=== PATIENT | male | born 1955 | race Caucasian/White ===

== ENCOUNTER 2018-10-22 21:20 | Inpatient (IN) | payer OTHER, MEDICAID ==
--- NOTE | 2018-10-22 21:58 | ED Physician Chart ---
ED Chief Complaint/HPI - Patient Information Date Seen:: 10/22/18 Time Seen:: 21:48 Chief Complaint:: G tube malfunction. right shoulder and right hip pain History of Present Illness:: 63 yo male with history of tremor and bipolar disorder and was admitted for manic episode to a [facility] hospital where he developed pneumonia and was placed with trach and PEG 4 months ago. Pt has been eating without issue for 3 months and pt has gained weight 30 lbs over 3 months. G tube feed was stopped 2 months ago. Pt noticed leakage and blockage of G tube today. About 2 months ago, pt had a fall resulting right shoulder and right hip pain. Currently, pt has painful ROM of the right shoulder. Pt was brought from SNF to ER for evaluation. Allergies:: Allergies Allergy/AdvReac Type Severity Reaction Status Date / Time No Known Allergies Allergy Verified 10/22/18 21:28 Vitals:: Vital Signs - 8 hr 10/22/18 21:20 Temp 98.8 F HR 91 RR 18 BP 129/90 O2 Sat % 97 ED Review of Systems - Review of Systems General/Constitutional: No fever, No chills Skin: No rash Head: No headache Eyes: No pain ENT: No earache Neck: Neck pain Cardio Vascular: Chest pain Pulmonary: No SOB GI: No nausea, No vomiting Musculoskeletal: No bone or joint pain Psychiatric: Depression, Anxiety Neurological: No focal symptoms ED Past Medical History - Past Medical History Past Medical History: HTN, Other (tremor, Klinefelters syndrome, left lazy eye) Social History: Non Smoker, No Alcohol, Illicit Drug Use (marijuana) Surgical History: PEG/GTube, other (Left inguinal hernia repair, tracheostomy ) Psychiatricy History: Bipolar Family Medical History - Family Member Mother History Unknown: Yes ED Physical Exam - Physical Examination General/Constitutional: Awake, Alert Other Gen/Cons comments:: Mild tremor of head and BUE Head: Atraumatic Eyes: PERRL, EOMI Skin: No skin lesions ENMT: Nasal exam nl Neck: No nuchal rigidity Respiratory: Clear to Auscultation, No Wheeze/Rhonchi/Rales Cardio Vascular: RRR, No murmur, gallop, rubs, NL S1 S2 GI: No tenderness/rebounding/guarding Other GI comments:: PEG in place, minor leakage from the tube Extremities: normal strength in all extremities Neuro/Psych: Normal motor strength, No focal deficits ED Labs/Radiology/EKG Results - Radiology Results Results: Right shoulder X ray: no acute fracture or dislocation Pelvis X ray: no acute fracture or dislocation ED Assessment - Assessment General Assessment: G tube malfunction Right shoulder pain Right hip pain Bipolar disorder Tremor Assessment/Comments:: Right shoulder X ray Pelvis X ray Admit to med surg for removal of PEG ED Septic Shock - . Is Septic Shock (SBP<90, OR Lactate>4 mmol\L) present?: No - <6hrs of presentation: Vital Signs: Vital Signs - 8 hr 10/22/18 21:20 Temp 98.8 F HR 91 RR 18 BP 129/90 O2 Sat % 97 ED Reassessment (Disposition) - Reassessment Reassessment Condition:: Unchanged - Patient Disposition Discharge/Transfer:: Acute Care w/in this hosp Admitting Medical Physician:: Tracy Jones
[2018-10-23] MEDS: D5-0.45NS 1,000 ML IV SCH (01:15)
[2018-10-23 01:25] VITALS: BP 122/76
[2018-10-23 05:36] LABS: ALB/GLOB RATIO 0.9 (1.0-1.8); ALBUMIN 3.4 gm/dL (4.2-5.5); ALKALINE PHOSPHATASE 66 U/L (34-104); BILIRUBIN,TOTAL 0.3 mg/dL (0.3-1.0); BUN - UREA NITROGEN 33 mg/dL (7-25); CALCIUM SERUM 9.6 mg/dL (8.6-10.3); CARBON DIOXIDE 28.1 mEq/L (21.0-31.0); CHLORIDE 104 mEq/L (98-107); CREATININE - SERUM 1.4 mg/dL (0.7-1.3); GFR AFRICAN-AMERICAN > 60.0 ml/min (>90); GFR NON AFRICAN-AMERICAN 54.1 ml/min; GLUCOSE 98 mg/dL (70-105); POTASSIUM SERUM 4.1 mEq/L (3.5-5.1); SGOT 12 U/L (13-39); SGPT/ALT 10 U/L (7-52); SODIUM SERUM 138 mEq/L (136-145); TOTAL PROTEIN,SERUM 7.3 gm/dL (6.0-8.3)
--- NOTE | 2018-10-23 09:20 | Diagnostic Imaging Report ---
Right hip (2 views) HISTORY: Pain Joint space appears normal. The femoral head exhibits a normal contour. No focal lesions. No fractures. IMPRESSION: No acute abnormalities
--- NOTE | 2018-10-23 09:25 | Diagnostic Imaging Report ---
Exam: Pelvis x-ray HISTORY: Pain Prior exam: None Findings: Frontal examination of the pelvis was reviewed. The study demonstrates no evidence of fracture or dislocation. The sacroiliac joints pubic symphysis and hip joints are intact. IMPRESSION: Unremarkable examination of the pelvis.
--- NOTE | 2018-10-23 09:25 | Diagnostic Imaging Report ---
EXAM: Right shoulder joint HISTORY: Pain COMPARISON: None FINDINGS: Multiple views of right shoulder joint reviewed. The study demonstrates no evidence of fracture or dislocation. There is no evidence of subluxation. The acromion clinically joint is intact. The head of right humerus is well within the glenoid fossa. IMPRESSION: Normal examination of the right shoulder joint.
--- NOTE | 2018-10-23 13:27 | History and Physical ---
History of Present Illness - HPI Chief Complaint: 63 y/o male patient was brought into ER due to G-tube leakage and blockage, [place] complaining of right shoulder and right hip pain. HPI: 63 y/o male patient was admitted to [facility] due to G-tube leakage and blockage. Patient also states he had a fall x 2 months ago and complains of right shoulder and right hip pain. Patient has history of Tremor, Bipolar disorder, Trach status and is G-tube dependent. Patient had an ER assessment and a complete workup was done. Patient had an x-ray done of the right shoulder and pelvis which both showed no fracture. Patient was diagnosed with G-tube malfunction, Right shoulder pain, Right hip pain, Bipolar disorder and Tremor. Patient will have a GI consult, Psych consult and I will follow patient. Patient will be treated and monitored. Patient will continue current treatment plan as ordered. Vital Signs: Last Vital Signs Temp 97.0 F 10/23/18 12:00 Pulse 75 10/23/18 12:00 Resp 18 10/23/18 12:00 BP 134/76 10/23/18 12:00 Pulse Ox 95 10/23/18 12:00 Past Medical History Cardiovascular: Report: No Pertinent Hx Pulmonary: Report: No Pertinent Hx PHARMACIST TECHNICIAN: Report: No Pertinent Hx GI: Report: Other (G-tube malfunction.) Psych: Report: Bipolar Musculoskeletal: Report: Other (Right shoulder pain and Right hip pain.) Rheumatologic: Report: No pertinent Hx Infectious Disease: Report: No Pertinent Hx Renal/: Report: No Pertinent Hx Endocrine: Report: No Pertinent Hx Dermatology: Report: No Pertinent Hx - Past Surgical History Past Surgical History: Other (G-tube status.) Family Medical History - Family Member Mother History Unknown: Yes Hx Family Cancer: No (unknown) Hx Family Coronary Artery Disease: No (unknown) Hx Family Congestive Heart Failure: No (unknown) Hx Family Hypertension: No (unknown) Hx Family Stroke: No (unknown) Hx Family Diabetes: No (unknown) Hx Family Seizures: No (unknown) Hx Family Dementia: No (unknown) Hx Family AIDS: No (unknown) Hx Family HIV: No Social History Smoke: No Alcohol: None Drugs: None Lives: [facility] Domestic Violence: Negative Health Maintenance Health Maintenance: Other (see chart.) - Medications Home Medications: Home Medication Medication Instructions Recorded Type Albuterol/Ipratropium Neb [Duoneb 3 ml HHN Q6HR PRN 10/22/18 History Neb] Carvedilol 3.125 mg PO BID 10/22/18 History Diphenhydramine HCL [Benadryl] 25 mg PO Q8HR PRN 10/22/18 History Docusate Sodium [Colace] 100 mg PO BID 10/22/18 History Escitalopram Oxalate [Lexapro] 20 mg PO DAILY 10/22/18 History Hydrocodone/APAP 5mg/325mg [[place] 1 tab PO Q6H PRN 10/22/18 History 5mg/325mg] Levothyroxine [Synthroid] 0.05 mg PO QDAC 10/22/18 History Lorazepam [Ativan] 0.5 mg PO Q6HR PRN 10/22/18 History OLANZapine [ZyPREXA] 10 mg PO TID 10/22/18 History Temazepam [Restoril*] 15 mg PO HS 10/22/18 History cloNIDine HCl [Catapres] 0.1 mg PO Q6HR PRN 10/22/18 History Other Medications: Please see medication reconciliation sheet. - Allergies Allergies/Adverse Reactions: Allergies Allergy/AdvReac Type Severity Reaction Status Date / Time No Known Allergies Allergy Verified 10/22/18 21:28 Review of Systems - Review of Systems Review of Systems: Patient c/o right shoulder and right hip pain since fall he had 2 months ago. Constitutional: Report: No Significant Eyes: Report: No Significant ENT: Report: No Significant Respiratory: Report: No Significant Cardiovascular: Report: No Significant Gastrointestinal: Report: No Significant Genitourinary: Report: No Significant Musculoskeletal: Report: Other (Right shoulder and Right hhip pain.) Skin: Report: No Significant Neurological: Report: No Significant Physical Exam - Physical Exam HEENT: Report: Ears Nose Throat within normal limits Neck: Report: Within normal limits Cardiovascular Systems: Report: +s1/s2 noted Respiratory: Report: Breath Sounds are within normal limits Abdomen: Report: Other (G-tube leakage and blockage.) Back: Report: Inspection of back is within normal limits. Extremities: Report: Other (Pain of right shoulder and pain of right hip.) Skin: Report: Color of skin is within normal limits Neuro/Psych: Report: Mood affect is within normal limits - Lab Results All Lab Results last 24 hours: Laboratory Results - last 24 hr 06/26/19 04:45 Sodium 138 Potassium 4.1 Chloride 104 Carbon Dioxide 28.1 Anion Gap 10.0 BUN 33 H Creatinine 1.4 H Est GFR ( Amer) > 60.0 Est GFR (Non-Af Amer) 54.1 BUN/Creatinine Ratio 23.6 Glucose 98 Calcium 9.6 Total Bilirubin 0.3 AST 12 L ALT 10 Alkaline Phosphatase 66 Total Protein 7.3 Albumin 3.4 L Globulin 3.9 Albumin/Globulin Ratio 0.9 L - Assessment Assessment: G-tube malfunction. Right shoulder pain. Right hip pain. Bipolar disorder. Tremor. - Plan Plan: Continuation of care. GI consult and Psych consult. Monitor Labs. Continue present meds as directed. Monitor Diet/Nutritional support/G-tube feedings Psych management per Psych. Pain Management. Physical therapy. Occupational therapy. Fall precaution, frequent nursing rounds, and as needed restraints to prevent fall. Safety precaution. Supportive care. Continue collaborating with consulting specialists, case management and nursing team. Will Monitor patient and continue current treatment plan as ordered.
--- NOTE | 2018-10-23 15:10 | Consultation ---
DATE OF CONSULTATION: 10/23/2018 REQUESTING PHYSICIAN: Dr. Jones. REASON FOR CONSULTATION: G-tube malfunction. HISTORY OF PRESENT ILLNESS: Thank you for asking me to see this patient in consultation. This is a 63-year-old gentleman who recently underwent a long hospitalization at which point, he was having oropharyngeal dysphagia and had a G-tube placement. The patient since this time has improved clinically and he is currently swallowing food without any difficulty or any issues. He currently does not require his G-tube and has not been using it and was requested that this be removed. At the time of my visit today, the patient has had a full meal and his medications currently are unknown. PAST MEDICAL HISTORY: No significant medical history. FAMILY HISTORY: Noncontributory for GI disease. SOCIAL HISTORY: No tobacco, alcohol or drugs. REVIEW OF SYSTEMS: As in HPI. All other 12-point systems are negative. PHYSICAL EXAMINATION: VITAL SIGNS: Temperature of 97, pulse 75, respirations 18, blood pressure 134/76, satting 95% on room air. GENERAL: No acute distress. HEENT: Normocephalic, atraumatic. PERRLA positive. LUNGS: Clear bilaterally. No wheezes, rales or rhonchi. HEART: Regular rate and rhythm, normal S1, S2. ABDOMEN: Soft, nontender, intact G-tube seen. EXTREMITIES: Show no lower extremity edema. PSYCHIATRIC: Alert and oriented x 3. NEUROLOGIC: Grossly intact. LABORATORY DATA: Sodium 138, potassium 4.1, chloride 104, BUN 33, creatinine 1.4, total bilirubin 0.3, AST of 12, ALT of 10. ASSESSMENT: This is a 63-year-old gentleman who presents with recent history of prolonged hospitalization, at that time required G-tube placement and then trach, who is currently improved clinically and no longer requiring G-tube. 1. Previous history of dysphagia. 2. Protein-calorie malnutrition. 3. Acute kidney injury. RECOMMENDATIONS: Would recommend continuing supportive care and management for this patient. I would recommend to remove G-tube after the patient has been n.p.o. after midnight to prevent any leakage of contents, which may further reduce the chances of successful stomal closure. Discussed this with the patient at the bedside, keep the patient n.p.o. after midnight and we will come in the morning to remove G-tube. Thank you for allowing me to participate in this patient's care. JOB# [id number]
[2018-10-23] MEDS ORDERED: Hydrocodone/APAP 5mg/325mg Tab PO PRN (15:40)
[2018-10-23] MEDS ORDERED: Albuterol/Ipratropium Neb 3 ML AERS HHN PRN (15:40)
[2018-10-24] MEDS: Levothyroxine 0.05 Mg Tab PO SCH (08:02)
[2018-10-24] MEDS: D5-0.45NS 1,000 ML IV SCH (09:34)
--- NOTE | 2018-10-24 09:45 | Consultation ---
DATE OF CONSULTATION: 10/24/2018 PSYCHIATRIC CONSULT PATIENT'S AGE: 63. SEX: Male. PHYSICIAN: Dr. Jones. ALMOND BLANCHER HAND: Dr. Luke. TYPE OF THE REPORT: Psychiatric consult. REASON FOR THE CONSULT: Adjusting psychotropic medications. HISTORY OF PRESENT ILLNESS: The patient with history of bipolar disorder. The patient was admitted to the hospital and Dr. Jones asked me to evaluate his condition and his psychotropic medications. The patient has been taking Zyprexa. The patient said that he has been stable in his psychotropic medications and Zyprexa has been helping his mood. He also has been slightly depressed, but not suicidal. He denies any auditory or visual hallucinations at this time. The patient also said that he tried different psychotropic medications, but nothing was helping him except Zyprexa. He said that he gained to start weight, but no major problems other than the weight gain. PAST PSYCHIATRIC HISTORY: The patient has history of treatment for depression and for bipolar disorder. PAST MEDICAL HISTORY: The patient said that he has Klinefelter syndrome. Otherwise, no other major medical issues. SOCIAL HISTORY: The patient is single, never and has no children. He lives in ____ for the last 3 months. He denies any alcohol or street drug use or smoking cigarettes. MENTAL STATUS EXAM: The patient appears his stated age. Calm. Cooperative. Fair eye contact. Normal tone and rate of speech. Thought processes are mainly goal directed. The patient denies any auditory or visual hallucinations or delusions. The patient denies any thoughts of suicide or homicide. The patient is alert and oriented to time, place, person, and situation. Intact immediate, recent and remote memories. Fair insight. Fair judgment. He seems to be of average intelligence based on his verbal ability. ASSESSMENT: PRIMARY DIAGNOSIS: Bipolar disorder, depressed episode, moderate without psychotic features. TREATMENT PLAN: Continue Zyprexa same dose. We will reevaluate and monitor his condition for any further recommendations. Thanks to Dr. Jones and we will followup with you. [facility]# [id number]
--- NOTE | 2018-10-24 13:15 | GI Progress Note ---
Subjective - Review of Systems Service Date: 10/24/18 Events since last encounter: No new events; pulled PEG tube GI OBJECTIVE - Results Result Diagrams: 10/23/18 04:45 Recent Labs: Laboratory Last Values Sodium 138 mEq/L (136-145) 10/23/18 04:45 Potassium 4.1 mEq/L (3.5-5.1) 10/23/18 04:45 Chloride 104 mEq/L (98-107) 10/23/18 04:45 Carbon Dioxide 28.1 mEq/L (21.0-31.0) 10/23/18 04:45 Anion Gap 10.0 (7.0-16.0) 10/23/18 04:45 BUN 33 mg/dL (7-25) H 10/23/18 04:45 Creatinine 1.4 mg/dL (0.7-1.3) H 10/23/18 04:45 Est GFR ( Amer) > 60.0 ml/min (>90) 10/23/18 04:45 Est GFR (Non-Af Amer) 54.1 ml/min 10/23/18 04:45 BUN/Creatinine Ratio 23.6 10/23/18 04:45 Glucose 98 mg/dL (70-105) 10/23/18 04:45 Calcium 9.6 mg/dL (8.6-10.3) 10/23/18 04:45 Total Bilirubin 0.3 mg/dL (0.3-1.0) 10/23/18 04:45 AST 12 U/L (13-39) L 10/23/18 04:45 ALT 10 U/L (7-52) 10/23/18 04:45 Alkaline Phosphatase 66 U/L (34-104) 10/23/18 04:45 Total Protein 7.3 gm/dL (6.0-8.3) 10/23/18 04:45 Albumin 3.4 gm/dL (4.2-5.5) L 10/23/18 04:45 Globulin 3.9 gm/dL 10/23/18 04:45 Albumin/Globulin Ratio 0.9 (1.0-1.8) L 10/23/18 04:45 - Physical Exam Vitals and I&O: Vital Signs Temp 97.5 F 10/24/18 11:42 Pulse 83 10/24/18 11:42 Resp 19 10/24/18 11:42 BP 116/74 10/24/18 11:42 Pulse Ox 98 10/24/18 11:42 Intake & Output 10/23/18 10/24/18 10/24/18 18:59 06:59 18:59 Intake Total 200 250 Output Total 400 400 Balance -200 -150 Weight (lbs) 68.946 kg 68.946 kg Intake: Oral 200 250 Output: Urine 400 400 Other: # Bowel Movements 0 Weight Source Bedscale Bedscale Active Medications: Current Medications Acetaminophen/Hydrocodone Bitart ([place] 5mg/325mg) 1 tab PO Q6H PRN PRN Reason: Pain (Moderate) Stop: 12/22/18 15:39 Albuterol/Ipratropium (Duoneb Neb) 3 ml HHN Q6HR PRN PRN Reason: Shortness of Breath Stop: 12/22/18 15:39 Carvedilol (Coreg) 3.125 mg PO BID [facility] Stop: 12/22/18 16:59 Last Admin: 10/24/18 08:02 Dose: Not Given Diphenhydramine HCl (Benadryl) 25 mg PO Q8HR PRN PRN Reason: Allergy Symptoms Stop: 12/22/18 15:39 Docusate Sodium (Colace) 100 mg PO BID [facility] Stop: 12/22/18 16:59 Last Admin: 10/24/18 08:02 Dose: Not Given Dextrose/Sodium Chloride (D5-0.45ns) 1,000 mls @ 50 mls/hr IV .Q20H [facility] Stop: 12/22/18 00:59 Last Admin: 10/24/18 09:34 Dose: 50 mls/hr Levothyroxine Sodium (Synthroid) 0.05 mg PO QDAC [facility] Stop: 12/23/18 07:29 Last Admin: 10/24/18 08:02 Dose: Not Given Lorazepam (Ativan) 1 mg PO Q6HR PRN; Protocol PRN Reason: Anxiety Stop: 12/22/18 12:46 Mupirocin (Bactroban Oint) 1 appl NS BID [facility] Stop: 10/29/18 09:01 Olanzapine (Zyprexa Zydis) 15 mg PO HS [facility]; Protocol Stop: 12/23/18 20:59 Temazepam (Restoril) 15 mg PO HS [facility]; Protocol Stop: 12/22/18 20:59 Last Admin: 10/23/18 20:35 Dose: 15 mg General: Alert, Oriented x3, Cooperative HEENT: Atraumatic, PERRLA, EOMI Neck: Supple Cardiovascular: Regular rate, Normal S1, Normal S2 Abdomen: Bowel sounds Assessment/Plan - Assessment Assessment: 1. Dysphagia - improved now 2. S/p PEG tube - pulled bedside -Traction method performed and G tube was removed: there is a mild amount of bloody discharge noted -Dress with dry dressing; will check healing tomorrow, then likely can be d/c but watch for any infection or bleeding -CLD for lunch, then regular food for dinner
--- NOTE | 2018-10-24 17:39 | Internal Medicine Prog Note ---
Internal Medicine Subjective - Subjective Service Date: 10/24/18 Patient seen and examined:: with staff Patient is:: awake Per staff patient has:: tolerating meds Internal Medicine Objective - Results Result Diagrams: 10/23/18 04:45 Recent Labs: Laboratory Last Values Sodium 138 mEq/L (136-145) 10/23/18 04:45 Potassium 4.1 mEq/L (3.5-5.1) 10/23/18 04:45 Chloride 104 mEq/L (98-107) 10/23/18 04:45 Carbon Dioxide 28.1 mEq/L (21.0-31.0) 10/23/18 04:45 Anion Gap 10.0 (7.0-16.0) 10/23/18 04:45 BUN 33 mg/dL (7-25) H 10/23/18 04:45 Creatinine 1.4 mg/dL (0.7-1.3) H 10/23/18 04:45 Est GFR ( Amer) > 60.0 ml/min (>90) 10/23/18 04:45 Est GFR (Non-Af Amer) 54.1 ml/min 10/23/18 04:45 BUN/Creatinine Ratio 23.6 10/23/18 04:45 Glucose 98 mg/dL (70-105) 10/23/18 04:45 Calcium 9.6 mg/dL (8.6-10.3) 10/23/18 04:45 Total Bilirubin 0.3 mg/dL (0.3-1.0) 10/23/18 04:45 AST 12 U/L (13-39) L 10/23/18 04:45 ALT 10 U/L (7-52) 10/23/18 04:45 Alkaline Phosphatase 66 U/L (34-104) 10/23/18 04:45 Total Protein 7.3 gm/dL (6.0-8.3) 10/23/18 04:45 Albumin 3.4 gm/dL (4.2-5.5) L 10/23/18 04:45 Globulin 3.9 gm/dL 10/23/18 04:45 Albumin/Globulin Ratio 0.9 (1.0-1.8) L 10/23/18 04:45 - Physical Exam Vitals and I&O: Vital Signs Temp 97.4 F 10/24/18 16:00 Pulse 87 10/24/18 16:00 Resp 18 10/24/18 16:00 BP 108/72 10/24/18 16:00 Pulse Ox 95 10/24/18 16:00 Intake & Output 10/23/18 10/24/18 10/24/18 18:59 06:59 18:59 Intake Total 200 250 400 Output Total 400 400 Balance -200 -150 400 Weight (lbs) 152 lb 152 lb 153 lb Intake: Oral 200 250 400 Output: Urine 400 400 Other: # Voids 2 # Bowel Movements 0 0 Weight Source Bedscale Bedscale Bedscale Active Medications: Current Medications Acetaminophen/Hydrocodone Bitart ([place] 5mg/325mg) 1 tab PO Q6H PRN PRN Reason: Pain (Moderate) Stop: 12/22/18 15:39 Albuterol/Ipratropium (Duoneb Neb) 3 ml HHN Q6HR PRN PRN Reason: Shortness of Breath Stop: 12/22/18 15:39 Carvedilol (Coreg) 3.125 mg PO BID [facility] Stop: 12/22/18 16:59 Last Admin: 10/24/18 15:59 Dose: Not Given Diphenhydramine HCl (Benadryl) 25 mg PO Q8HR PRN PRN Reason: Allergy Symptoms Stop: 12/22/18 15:39 Docusate Sodium (Colace) 100 mg PO BID [facility] Stop: 12/22/18 16:59 Last Admin: 10/24/18 15:59 Dose: Not Given Dextrose/Sodium Chloride (D5-0.45ns) 1,000 mls @ 50 mls/hr IV .Q20H [facility] Stop: 12/22/18 00:59 Last Admin: 10/24/18 09:34 Dose: 50 mls/hr Levothyroxine Sodium (Synthroid) 0.05 mg PO QDAC [facility] Stop: 12/23/18 07:29 Last Admin: 10/24/18 08:02 Dose: Not Given Lorazepam (Ativan) 1 mg PO Q6HR PRN; Protocol PRN Reason: Anxiety Stop: 12/22/18 12:46 Mupirocin (Bactroban Oint) 1 appl NS BID [facility] Stop: 10/29/18 09:01 Last Admin: 10/24/18 16:01 Dose: 1 appl Olanzapine (Zyprexa Zydis) 15 mg PO HS [facility]; Protocol Stop: 12/23/18 20:59 Temazepam (Restoril) 15 mg PO HS [facility]; Protocol Stop: 12/22/18 20:59 Last Admin: 10/23/18 20:35 Dose: 15 mg General: weak HEENT: NC/AT, PERRLA Neck: Supple Lungs: CTAB Cardiovascular: RRR, Normal S1, Normal S2, without murmur Abdomen: soft, non-distended Extremities: excoriation Internal Medicine Assmt/Plan - Assessment Assessment: G-tube malfunction. Right shoulder pain. Right hip pain. Bipolar disorder. Tremor. - Plan Plan: monitor s/sx of infection from peg site am labs continue current plan of care
[2018-10-24] MEDS ORDERED: OLANZapine 5 mg Oral Disintegrating Tab PO SCH (21:00)
[2018-10-25 06:41] LABS: % BASOPHILS 0.6 % (0.0-2.0); % EOSINOPHILS 6.2 % (0.0-5.0); % LYMPHOCYTES 26.2 % (20.0-50.0); % MONOCYTES 10.6 % (2.0-10.0); % NEUTROPHILS 56.4 % (40.0-80.0); EOSINOPHILE ABSOLUTE 0.4 Th/cmm (0.1-0.4); HEMATOCRIT 33.9 % (41.0-60); HEMOGLOBIN 11.8 gm/dL (12-16); LYMPHOCYTE ABSOLUTE 1.7 Th/cmm (1.5-3.0); MEAN CELL VOLUME 89.7 fl (80-99); MEAN CORPUSCULAR HEMOGLOBIN 31.1 pg (27.0-31.0); MEAN CORPUSCULAR HGB CONC 34.7 pg (28.0-36.0); MONOCYTE ABSOLUTE 0.7 Th/cmm (0.3-1.0); NEUTROPHILE ABSOLUTE 3.5 Th/cmm (1.8-8.0); PLATELET COUNT 226 Th/cmm (150-400); RED BLOOD COUNT 3.79 Mil/cmm (3.80-5.80); RED CELL DISTRIBUTION WIDTH 12.8 % (11.5-20.0); WHITE BLOOD COUNT 6.3 Th/cmm (4.8-10.8)
[2018-10-25 07:03] LABS: ANION GAP 11.1 (7.0-16.0); CALCIUM SERUM 9.7 mg/dL (8.6-10.3); CREATININE - SERUM 1.7 mg/dL (0.7-1.3); GFR AFRICAN-AMERICAN 52.3 ml/min (>90); GFR NON AFRICAN-AMERICAN 43.2 ml/min; POTASSIUM SERUM 4.1 mEq/L (3.5-5.1)
[2018-10-25] MEDS: Levothyroxine 0.05 Mg Tab PO SCH (08:13)
--- NOTE | 2018-10-25 09:56 | GI Progress Note ---
Subjective - Review of Systems Service Date: 10/25/18 Events since last encounter: No events, tolerating diet GI OBJECTIVE - Results Result Diagrams: 10/25/18 06:00 10/25/18 06:00 Recent Labs: Laboratory Last Values WBC 6.3 Th/cmm (4.8-10.8) 10/25/18 06:00 RBC 3.79 Mil/cmm (3.80-5.80) L 10/25/18 06:00 Hgb 11.8 gm/dL (12-16) L 10/25/18 06:00 Hct 33.9 % (41.0-60) L 10/25/18 06:00 MCV 89.7 fl (80-99) 10/25/18 06:00 MCH 31.1 pg (27.0-31.0) H 10/25/18 06:00 MCHC Differential 34.7 pg (28.0-36.0) 10/25/18 06:00 RDW 12.8 % (11.5-20.0) 10/25/18 06:00 Plt Count 226 Th/cmm (150-400) 10/25/18 06:00 MPV 6.9 fl 10/25/18 06:00 Neutrophils % 56.4 % (40.0-80.0) 10/25/18 06:00 Lymphocytes % 26.2 % (20.0-50.0) 10/25/18 06:00 Monocytes % 10.6 % (2.0-10.0) H 10/25/18 06:00 Eosinophils % 6.2 % (0.0-5.0) H 10/25/18 06:00 Basophils % 0.6 % (0.0-2.0) 10/25/18 06:00 Sodium 140 mEq/L (136-145) 10/25/18 06:00 Potassium 4.1 mEq/L (3.5-5.1) 10/25/18 06:00 Chloride 103 mEq/L (98-107) 10/25/18 06:00 Carbon Dioxide 30.0 mEq/L (21.0-31.0) 10/25/18 06:00 Anion Gap 11.1 (7.0-16.0) 10/25/18 06:00 BUN 33 mg/dL (7-25) H 10/25/18 06:00 Creatinine 1.7 mg/dL (0.7-1.3) H 10/25/18 06:00 Est GFR ( Amer) 52.3 ml/min (>90) 10/25/18 06:00 Est GFR (Non-Af Amer) 43.2 ml/min 10/25/18 06:00 BUN/Creatinine Ratio 19.4 10/25/18 06:00 Glucose 96 mg/dL (70-105) 10/25/18 06:00 Calcium 9.7 mg/dL (8.6-10.3) 10/25/18 06:00 Total Bilirubin 0.3 mg/dL (0.3-1.0) 10/23/18 04:45 AST 12 U/L (13-39) L 10/23/18 04:45 ALT 10 U/L (7-52) 10/23/18 04:45 Alkaline Phosphatase 66 U/L (34-104) 10/23/18 04:45 Total Protein 7.3 gm/dL (6.0-8.3) 10/23/18 04:45 Albumin 3.4 gm/dL (4.2-5.5) L 10/23/18 04:45 Globulin 3.9 gm/dL 10/23/18 04:45 Albumin/Globulin Ratio 0.9 (1.0-1.8) L 10/23/18 04:45 - Physical Exam Vitals and I&O: Vital Signs Temp 97.8 F 10/25/18 08:00 Pulse 86 10/25/18 08:00 Resp 16 10/25/18 08:00 BP 121/80 10/25/18 08:00 Pulse Ox 100 10/25/18 08:00 Intake & Output 10/24/18 10/25/18 10/25/18 18:59 06:59 18:59 Intake Total 400 250 Output Total 600 Balance 400 -350 Weight (lbs) 69.4 kg 69.4 kg Intake: Oral 400 250 Output: Urine 600 Other: # Voids 2 # Bowel Movements 0 Weight Source Bedscale Bedscale Active Medications: Current Medications Acetaminophen/Hydrocodone Bitart ([place]olph 5mg/325mg) 1 tab PO Q6H PRN PRN Reason: Pain (Moderate) Stop: 12/22/18 15:39 Albuterol/Ipratropium (Duoneb Neb) 3 ml HHN Q6HR PRN PRN Reason: Shortness of Breath Stop: 12/22/18 15:39 Carvedilol (Coreg) 3.125 mg PO BID [facility] Stop: 12/22/18 16:59 Last Admin: 10/25/18 08:14 Dose: Not Given Diphenhydramine HCl (Benadryl) 25 mg PO Q8HR PRN PRN Reason: Allergy Symptoms Stop: 12/22/18 15:39 Docusate Sodium (Colace) 100 mg PO BID [facility] Stop: 12/22/18 16:59 Last Admin: 10/25/18 08:14 Dose: Not Given Dextrose/Sodium Chloride (D5-0.45ns) 1,000 mls @ 50 mls/hr IV .Q20H [facility] Stop: 12/22/18 00:59 Last Admin: 10/24/18 09:34 Dose: 50 mls/hr Levothyroxine Sodium (Synthroid) 0.05 mg PO QDAC [facility] Stop: 12/23/18 07:29 Last Admin: 10/25/18 08:13 Dose: 0.05 mg Lorazepam (Ativan) 1 mg PO Q6HR PRN; Protocol PRN Reason: Anxiety Stop: 12/22/18 12:46 Mupirocin (Bactroban Oint) 1 appl NS BID [facility] Stop: 10/29/18 09:01 Last Admin: 10/25/18 08:13 Dose: 1 appl Olanzapine (Zyprexa Zydis) 15 mg PO HS [facility]; Protocol Stop: 12/23/18 20:59 Last Admin: 10/24/18 20:49 Dose: 15 mg Temazepam (Restoril) 15 mg PO HS [facility]; Protocol Stop: 12/22/18 20:59 Last Admin: 10/24/18 20:49 Dose: 15 mg General: Alert, Oriented x3, Cooperative HEENT: Atraumatic Neck: Supple Cardiovascular: Regular rate, Normal S1, Normal S2 Lungs: Clear to auscultation Abdomen: Bowel sounds Assessment/Plan - Assessment Assessment: 1. Dysphagia - improved now 2. S/p PEG tube - pulled bedside -Traction method performed and G tube was removed: there is a mild amount of bloody discharge noted -Dress with dry dressing; will check healing tomorrow, then likely can be d/c but watch for any infection or bleeding Site looks good, keep dry dressing for another 48 hrs Okay from GI to be discharged Will follow while patient in hospital
--- NOTE | 2018-10-25 18:20 | Progress Notes ---
DATE: SUBJECTIVE: Chart was reviewed and the patient interviewed. Also discussed the patient's condition with the staff and reviewed records and labs. The patient's affect is brighter. The patient is cooperative with his treatment. The patient said that he slept good last night. He also denies any auditory or visual hallucinations or delusions. Also, denies any intention to harm himself or others. The patient also said that Zyprexa 15 mg seems to be the appropriate dose for him and will continue same dose. Also, continue evaluating his condition and follow up. JOB# [id number]
== END 2018-10-25 15:10 | DRG 394 ==
LOC: ER 21:20 → MSI 23:03
PROVIDERS: ADMIT Internal Medicine; ATTEND Internal Medicine
PROC: 0DP6XUZ Removal of Feeding Device from Stomach, External Approach (ICD-10-PCS; principal; 2018-10-24)
DX: K94.23 Gastrostomy malfunction (principal); E46 Unspecified protein-calorie malnutrition; N17.9 Acute kidney failure, unspecified; F31.32 Bipolar disorder, current episode depressed, moderate; Z68.1 Body mass index [BMI] 19.9 or less, adult; M25.511 Pain in right shoulder; R25.1 Tremor, unspecified; I10 Essential (primary) hypertension; Z91.81 History of falling; Y83.3 Surgical operation with formation of external stoma as the cause of abnormal reaction of the patient, or of later complication, without mention of misadventure at the time of the procedure; Y92.89 Other specified places as the place of occurrence of the external cause
CPT/HCPCS: 36415-UA; 72170-TC; 73030-TC-RT; 73501; 80048-TC; 80053-TC; 85025-TC; 94760; Z7610